=== PATIENT | male | born 1970 | race Asian ===

== ENCOUNTER 2024-03-02 18:25 | Observation (INO) | payer OTHER, SELFPAY ==
[2024-03-02 13:00] VITALS: BP 129/85
--- NOTE | 2024-03-02 13:00 | ED.GENMED ---
ED Provider Triage
<Yovany Olsen PA-C - Last Filed: 03/02/24 13:04>
-
Patient seen by provider in Triage?: Seen in Triage
Attestation: A medical screening examination has been initiated by a qualified medical provider. Based on the assessment performed at this time, it has been determined that an emergent medical condition may exist and the patient has been informed
that further medical evaluation and possible additional diagnostic testing may be needed.
HPI: 54-year-old male presenting to the emergency department for evaluation of chest pain and shortness of breath that has been occurring intermittently over the last 3 days. Started 3 days ago while he was at work doing some lifting. Symptoms
lasted approximately 5 to 6 hours and resolve spontaneously. He did note during that time he felt nauseous and lightheaded. [facility] had similar episode about 4 to 5 years ago where he was admitted to [facility] where he had a
stress test and echocardiogram completed but no abnormalities were found. He is supposed to be taking medicine for blood pressure and cholesterol but states stopped taking this a few years ago. He notes that he does not go to the primary care
regularly. Currently asymptomatic. Labs and EKG ordered in triage.
GENERAL: Alert , in no apparent distress
EYE: No visual abnormalities.
NECK: Trachea midline
ENT: No visible abnormalities.
LUNGS: No acute respiratory distress
NEUROLOGICAL: Alert and oriented
SKIN: Skin intact. No visible changes.
MUSCULOSKELETAL: Moving extremities normally
PSYCH: Normal and appropriate interaction.
This is a medical evaluation conducted in person to initiate diagnostic evaluation and provide initial therapeutics. Please see further documentation by the treating clinician.
History of Present Illness
<Yovany Olsen PA-C - Last Filed: 03/02/24 13:04>
General
Chief Complaint: Breathing Problem
Time Seen by Provider: 03/02/24 16:17
<Tony Cueva MD - Last Filed: 03/02/24 19:16>
General
Source: patient
Exam Limitations: none
History of Present Illness
History of Present Illness:
54-year-old male describing exertional shortness of breath and chest tightness with some nausea. Currently asymptomatic. Last episode this morning. Get symptoms going up stairs.
Past History
<Yovany Olsen PA-C - Last Filed: 03/02/24 13:04>
Past History
ED Past Medical History: Hypercholesterolemia; Negative Asthma, HTN or NIDDM
ED Past Surgical History: None
Social History
Tobacco: Non-smoker
Alcohol: None
Personal:
Living: with family
<Tony Cueva MD - Last Filed: 03/02/24 19:16>
Past History
ED Past Medical History: HTN
Phy Exam
<Tony Cueva MD - Last Filed: 03/02/24 19:16>
Physical Exam
Physical Exam:
GENERAL: Alert and oriented in no apparent distress
EYE: Orbits normal.
NECK: Supple, no significant adenopathy.
ENT: Pharynx without erythema
CARDIAC: Regular rate and rhythm without any obvious murmurs.
LUNGS: Clear breath sounds,normal
ABDOMEN: Soft, without focal tenderness or distention
NEUROLOGICAL: Alert and oriented , grossly non-focal
SKIN: Warm and dry, no rash or lesion, no discoloration, skin intact.
MUSCULOSKELETAL: No edema,no deformity.Good color
PSYCH: Normal and appropriate interaction.
Scores
<Tony Cueva MD - Last Filed: 03/02/24 19:16>
Heart Failure Risk
Heart Failure Risk Score: Not Applicable
Course
<Yovany Olsen PA-C - Last Filed: 03/02/24 13:04>
Orders/Labs/Results
Orders:
Orders
03/02/24 12:36
Electrocardiogram (*1) Urgent
Reason for Study: Chest Pain
EKG- Treatment ONCE
03/02/24 12:52
EKG- Treatment ONCE
03/02/24 13:52
Complete Blood Count/With Diff Urgent
Comprehensive Metabolic Panel Urgent
Troponin I Urgent
03/02/24 16:26
IV Insert/Care/Rem.- Treatment PRN
03/02/24 16:27
Cardiac Monitoring- Treatment ONCE
CR Chest - 2 Views Urgent
Comment:
Reason For Exam: cp
03/02/24 16:43
D-Dimer Urgent
03/02/24 17:45
Aspirin Chewable [Low Strength Aspirin] 324 mg PO NOW STA
03/02/24 18:05
Admit/Transfer Patient As Directed
Co-Sign Provider:
Level of Care: Observation services
Assign to:: Telemetry
Physician / Group: Htay
Diagnosis: chest pain
Reason for Telemetry: Chest Pain syndromes
Date to Stop Telemetry: 03/04/24
Time to Stop Telemetry: 11:00
Acetaminophen [Tylenol] 1,000 mg PO NOW STA
03/02/24 18:06
PRN Pain Medication Management As Directed
May give lesser potent ordered pain med per pt: Yes
preference::
Protocol:: Medication orders for pain may be administered in a
manner that supports deferring to patient preference
when the pt is:
- Requesting an ordered lesser potent pain medication.
Least to most potent pain medications are defined
as: acetaminophen < NSAID < tramadol < opioids
(morphine, oxycodone, hydromorphone).
- Requesting a lesser dose of the same medication IF
ORDERED.
- Requesting a less intrusive route of administration
if both routes are prescribed by the provider (PO <
IV).
03/02/24 18:07
Code Status As Directed
Resuscitation Status: Full Code
03/02/24 20:00
Electrocardiogram (*1) Q6H
Reason for Study: Chest Pain
Comment: at admission and Q3H for total of 3, to be done with each troponin
Troponin I Q6H
03/03/24 02:00
Electrocardiogram (*1) Q6H
Reason for Study: Chest Pain
Comment: at admission and Q3H for total of 3, to be done with each troponin
Troponin I Q6H
03/04/24 11:00
DC Protocol for Telemetry ONCE
Abnormal Lab Results
03/02/24
13:52
Monocytes % 9.8 H %
(1.7-9.3)
Glucose 105 H mg/dl
(70-99)
ALT 55 H U/L
(0-50)
03/02/24 13:52
03/02/24 13:52
Vital Signs
Initial and Last Documented VS:
Initial Vital Signs
Temp Pulse Resp BP Pulse Ox
98.7 F 80 18 129/85 99
03/02/24 13:00 03/02/24 13:00 03/02/24 13:00 03/02/24 13:00 03/02/24 13:00
Last Documented Vital Signs
Temp Pulse Resp BP Pulse Ox
98.4 F 70 18 157/93 100
03/02/24 15:01 03/02/24 16:15 03/02/24 16:15 03/02/24 16:15 03/02/24 16:15
<Tony Cueva MD - Last Filed: 03/02/24 19:16>
Orders/Labs/Results
Orders:
Orders
03/02/24 12:36
Electrocardiogram (*1) Urgent
Reason for Study: Chest Pain
EKG- Treatment ONCE
03/02/24 12:52
EKG- Treatment ONCE
03/02/24 13:52
Complete Blood Count/With Diff Urgent
Comprehensive Metabolic Panel Urgent
Troponin I Urgent
03/02/24 16:26
IV Insert/Care/Rem.- Treatment PRN
03/02/24 16:27
Cardiac Monitoring- Treatment ONCE
CR Chest - 2 Views Urgent
Comment:
Reason For Exam: cp
03/02/24 16:43
D-Dimer Urgent
03/02/24 17:45
Aspirin Chewable [Low Strength Aspirin] 324 mg PO NOW STA
03/02/24 18:05
Admit/Transfer Patient As Directed
Co-Sign Provider:
Level of Care: Observation services
Assign to:: Telemetry
Physician / Group: Htay
Diagnosis: chest pain
Reason for Telemetry: Chest Pain syndromes
Date to Stop Telemetry: 03/04/24
Time to Stop Telemetry: 11:00
Acetaminophen [Tylenol] 1,000 mg PO NOW STA
03/02/24 18:06
PRN Pain Medication Management As Directed
May give lesser potent ordered pain med per pt: Yes
preference::
Protocol:: Medication orders for pain may be administered in a
manner that supports deferring to patient preference
when the pt is:
- Requesting an ordered lesser potent pain medication.
Least to most potent pain medications are defined
as: acetaminophen < NSAID < tramadol < opioids
(morphine, oxycodone, hydromorphone).
- Requesting a lesser dose of the same medication IF
ORDERED.
- Requesting a less intrusive route of administration
if both routes are prescribed by the provider (PO <
IV).
03/02/24 18:07
Code Status As Directed
Resuscitation Status: Full Code
03/02/24 20:00
Electrocardiogram (*1) Q6H
Reason for Study: Chest Pain
Comment: at admission and Q3H for total of 3, to be done with each troponin
Troponin I Q6H
03/03/24 02:00
Electrocardiogram (*1) Q6H
Reason for Study: Chest Pain
Comment: at admission and Q3H for total of 3, to be done with each troponin
Troponin I Q6H
03/04/24 11:00
DC Protocol for Telemetry ONCE
Abnormal Lab Results
03/02/24
13:52
Monocytes % 9.8 H %
(1.7-9.3)
Glucose 105 H mg/dl
(70-99)
ALT 55 H U/L
(0-50)
03/02/24 13:52
03/02/24 13:52
Vital Signs
Initial and Last Documented VS:
Initial Vital Signs
Temp Pulse Resp BP Pulse Ox
98.7 F 80 18 129/85 99
03/02/24 13:00 03/02/24 13:00 03/02/24 13:00 03/02/24 13:00 03/02/24 13:00
Last Documented Vital Signs
Temp Pulse Resp BP Pulse Ox
98.4 F 70 18 157/93 100
03/02/24 15:01 03/02/24 16:15 03/02/24 16:15 03/02/24 16:15 03/02/24 16:15
<Tony Cueva MD - Last Filed: 03/02/24 19:16>
MDM/Problems Addressed
Differential Diagnosis Includes:
Patient's symptoms are concerning for unstable angina although he is stable at this time. Will admit to medicine.
<Tony Cueva MD - Last Filed: 03/02/24 19:16>
*Pulse Oximetry
Patient hypoxic: no
*EKG
Interpreted by ED Provider?: Yes
Interpretation: normal
Heart Rate: 69
Rate: normal
Rhythm: sinus
[place]: normal axis
Interval: normal interval
QRS Pattern: right bundle branch block (inc)
Ischemia: no ischemia
*Critical Care Note
Total Time (30-74mins, 75-104mins- exclusive of procedures): Not Applicable
ED Attending Note
<Yovany Olsen PA-C - Last Filed: 03/02/24 13:04>
-
Portions of this chart may have been created with voice recognition software.� Occasional wrong word or��sound alike� substitutions may have occurred due to the inherent limitations of voice recognition software.
Discharge Plan
Departure
Patient Disposition: Admit
Date of Disposition: 03/02/24
Time of Disposition: 17:49
Presentation/result/management discussed w/ accepting MD/DO: Hospitalist
Discharge Problem:
Possible unstable angina
Interventions
Interventions:
*Risk Screen - Suicide Last Done: 03/02/24 13:00
*General Assessment Last Done: 03/02/24 13:00
*Neglect/Abuse Screening Last Done: 03/02/24 13:00
ED- Cardiac Assessment Last Done: 03/02/24 16:17
ED- Pulmonary Assessment Last Done: 03/02/24 16:17
[2024-03-02 13:59] LABS: % Basophils 1.2 % (0-2); % Eosinophils 4.3 % (0-6); % Immature Granulocytes 0.2 % (0-0.5); % Lymphocytes 39.5 % (20.5-51.1); % Monocytes 9.8 % (1.7-9.3); Absolute Basophils 0.1 10^3/uL (0-0.2); Absolute Eosinophils 0.2 10^3/uL (0-0.7); Absolute Monocytes 0.5 10^3/uL (0.1-0.6); Absolute Neutrophils 2.3 10^3/uL (1.4-6.5); Hematocrit 47.5 % (39.0-52.0); Hemoglobin 16.9 g/dL (13.0-18.0); Mean Corp Hgb Conc. 35.6 g/dL (33.0-37.0); Mean Corpuscular Hgb 30.7 pg (27.0-31.0); Mean Corpuscular Volume 86.4 fL (80.0-94.0); Mean Platelet Volume 9.4 fL (7.4-10.4); Nucleated Red Blood Cells % 0 % (-); Platelet Count 239 10^3/uL (130-400); Red Cell Dist. Width 12.1 % (11.5-14.5); White Blood Cell Count 5.1 10^3/uL (4.8-10.8)
[2024-03-02 14:38] LABS: Troponin I < 0.012 ng/ml
[2024-03-02 14:41] LABS: ALT (SGPT) 55 U/L (0-50); AST (SGOT) 36 U/L (17-59); Albumin 4.9 g/dl (3.5-5.0); Alkaline Phosphatase 68 U/L (38-126); Blood Urea Nitrogen 19 mg/dl (9-20); Calcium 9.3 mg/dl (8.4-10.2); Carbon Dioxide 28 mmol/L (22-30); Chloride 101 mmol/L (98-107); Glucose 105 mg/dl (70-99); Sodium 142 mmol/L (135-145); Total Bilirubin 0.5 mg/dl (0.2-1.3); Total Protein 7.4 g/dl (6.3-8.2); eGFR > 60.00
[2024-03-02 15:01] VITALS: BP 137/90
[2024-03-02 16:15] VITALS: BP 157/93
[2024-03-02 17:05] LABS: D-Dimer < 0.27 ug/mlFEU (0.00-0.50)
[2024-03-02 18:00] VITALS: BP 144/88
[2024-03-02] MEDS: LOW STRENGTH ASPIRIN 324 MG PO (18:11)
[2024-03-02] MEDS: TYLENOL 1000 MG PO (18:11)
--- NOTE | 2024-03-02 18:13 | HPS.HSE ---
Addendum entered and electronically signed by Diony Muro MD 03/02/24 18:44:
I saw and examined the patient.
The BAR STEWARD or PA's note was reviewed and I agree with the note.
Comment:
4S M HX f hypertension and hyperlipidemia
Hemodynamically stable Abnormal Lab Results
03/02/24
13:52
Monocytes % 9.8 H
Glucose 105 H
ALT 55 H
Vital Signs
Temp Pulse Resp BP Pulse Ox
98.4 F 70 18 157/93 100
03/02/24 15:01 03/02/24 16:15 03/02/24 16:15 03/02/24 16:15 03/02/24 16:15
EKG:
NORMAL SINUS RHYTHM
INCOMPLETE RIGHT BUNDLE BRANCH BLOCK
BORDERLINE ECG
WHEN COMPARED WITH ECG OF 24-AUG-2021 21:02
ASSESSMENT & PLAN
Chest Pain, possible Angina
- NEG TPNI
- Trend troponin and serial EKGs
- Continue aspirin
- consult Cardiology
Essential Hypertension
- agree with metoprolol
Hyperlipidemia
- agree with atorvastatin
DVT Prx : SCDs
Full code
TLM
Original Note:
Family Physician
-
Family Physician: Marsha Randall
Chief Complaint
-
Chest Pain
History of Present Illness
Patient is a 54 y/o male past medical history of hypertension and hyperlipidemia though not on medication who presents with chest pain. Patient reports 3 day ago while lifting boxes he developed chest pressure that last for several hours
afterwards. Since then he has had two more episodes, most recently this morning while eating breakfast. He reports chest pressure walking up the stairs which he reports is accompanied by shortness of breath, and lightheadedness. He reports similar
episode a few years ago with a negative work-up at that time.
Medical History
Past Medical History
Past Medical History: Reports Other
Additional Past Medical History:
Essential Hypertension
Hyperlipidemia
Past Surgical History: Reports Other
Additional Past Surgical History:
Hernia Repair
Social History
Tobacco: Former Smoker (Quit over 20 year ago)
Alcohol: Occasional
Personal:
Living: With Family
Family History
Family History: CAD (Mother and Father)
Allergies / Home Medications
Allergies reflects when Allergies were last updated in [facility].
Home Medications with original date entered in [facility]
Allergy/Medication List:
Allergies
Allergy/AdvReac Type Severity Reaction Status Date / Time
No Known Allergies Allergy Unverified 08/24/21 15:17
Home Medications
ascorbic acid (vitamin C) 1,000 mg tablet (Vitamin C) 1,000 mg PO DAILY 08/24/21
multivitamin 1 ea PO DAILY 08/24/21
-rgf-vhx-other [id number] oil 1,050 mg capsule ([place] [employer]) 1,050 mg PO DAILY 08/24/21
Review of Systems
-
A 12 point ROS was completed and negative except as noted: Yes
Constitutional: Denies Fever or Chills
Respiratory: Reports Trouble Breathing; Denies Cough
Cardiac: Reports Chest Pain
Abdomen/GI: Reports Nausea; Denies Abdominal Pain, Vomiting or Diarrhea
Physical Exam
Vital Signs
Vital Signs
Temp Pulse Resp BP Pulse Ox
98.4 F 70 18 157/93 100
03/02/24 15:01 03/02/24 16:15 03/02/24 16:15 03/02/24 16:15 03/02/24 16:15
Physical Exam
General: No Apparent Distress, Comfortable and Conversant
HEENT: Anicteric and Moist mucous membranes
Respiratory: Clear and Non Labored Respirations
Cardiac: S1/S2 and Regular Rhythm
GI: Soft and Non Tender
Rectal: Deferred by Provider
Musculoskeletal: No Clubbing, No Cyanosis and No Edema
Skin: Warm and Dry
Neuro: Awake, Alert, Oriented and Nonfocal/grossly intact
Psych: Calm
Laboratory Results
-
03/02/24 13:52
03/02/24 13:52
Laboratory Results
Total Bilirubin 0.5 mg/dl (0.2-1.3) 03/02/24 13:52
AST 36 U/L (17-59) 03/02/24 13:52
ALT 55 U/L (0-50) H 03/02/24 13:52
Alkaline Phosphatase 68 U/L (38-126) 03/02/24 13:52
Troponin I < 0.012 ng/ml 03/02/24 13:52
Data Reviewed
-
Medical Tests (Nuc Med, Echo, EKG etc): Report Reviewed by me (EKG)
Lab Data: Labs Reviewed by me
Impression/Plan
-
Chest Pain, possible Angina
-Consult Cardiology
-Trend troponin and serial EKGs
-Continue aspirin
Essential Hypertension
-Start metoprolol
Hyperlipidemia
-Start atorvastatin
DVT Proph: SCDs
Code Status: Full Code
--- NOTE | 2024-03-02 18:13 | CON.CAR ---
Consultation
Consultation Request
Date/Time Consultation Requested: 03/02/2024 at 1730
Date/Time Consultation Performed: 03/02/2024 at 1815
Requesting Provider: Dr. Cueva
Performing Provider: Dr. Villalba
Reason for Consultation: Chest pain
Medical History
-
History of Present Illness:
54-year-old male with a history of hypercholesterolemia and a family history of coronary artery disease who presents with complaints of exertional shortness of breath and episodes of chest discomfort. Patient states he had symptoms over the last 3
days. He was in his usual state of health until Tuesday. 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 He said boxes were about 30 pounds and he was working moving the boxing Kasey for close to an hour he noticed that he got short of
breath and he had to go sit down to catch his breath and while he was trying to catch his breath he had chest pressure that persisted. He says that although the chest pressure and shortness of breath improved significantly had residual chest
pressure for about 6 hours. He also just felt tired. He had no palpitations or heart racing no cough fever. No other GI symptoms. The next day he decided to stay home from work he was able to do light activities like walking the dog and walking
up the stairs slowly but on 1 occasion he walked up the stairs more quickly and felt like he got out of breath and then felt like he would have the chest pressure for couple hours. He also noted later that day that his shortness of breath and chest
discomfort would occur after eating he says this did not happen if he drank liquids but if he ate any kind of solid food he would develop the symptoms. The symptoms even occurred while he was seated this morning after eating breakfast he had
recurrence of the symptoms which prompted him to go to the ER. Symptoms resolved without any additional therapy currently chest pain-free. No prior cardiac history he has been told he has hypercholesterolemia but has not taken medical therapy.
Family history is notable for his father having heart attack in his 70s and his mother having bypass in her 60s
Review of systems otherwise unremarkable
Currently chest pain-free. Troponin negative. D-dimer negative. Glucose 105 AST 36 ALT 55 total bilirubin 0.5
No prior history of coronary artery disease
Denies having history of hypertension, diabetes smoking
ECG tracing reviewed sinus rhythm with incomplete right bundle branch block
Social History
Tobacco: Non-Smoker
Family History
Family History: CAD (As noted above)
Allergies / Home Medications
Allergy/AdvReac Type Severity Reaction Status Date / Time
No Known Allergies Allergy Unverified 08/24/21 15:17
�Medication �Instructions �Recorded �Confirmed �Type
ascorbic acid (vitamin C) 1,000 mg 1,000 mg PO DAILY 08/24/21 08/24/21 History
tablet (Vitamin C)
multivitamin 1 ea PO DAILY 08/24/21 08/24/21 History
znufm7-[id number]-other [id number] 1,050 mg PO DAILY 08/24/21 08/24/21 History
oil 1,050 mg capsule ([employer] [employer])
Review of Systems
-
All other systems: Negative unless noted
Physical Exam
Vital Signs
Temp Pulse Resp BP Pulse Ox
98.4 F 70 18 157/93 100
03/02/24 15:01 03/02/24 16:15 03/02/24 16:15 03/02/24 16:15 03/02/24 16:15
Lab Results
03/02/24 13:52
03/02/24 13:52
Troponin I < 0.012 ng/ml 03/02/24 13:52
Physical Exam
General: Well Developed and Well Nourished
HEENT: Normocephalic
Respiratory: Clear (No wheezes rales or rhonchi)
Cardiac: S1/S2, Regular Rhythm and Other (No murmur rub or gallop)
GI: Soft, Non Tender, Non Distended, Normal Bowel Sounds and Other (No mass no hepatosplenomegaly)
Musculoskeletal: No Clubbing, No Cyanosis and No Edema
Skin: Warm, Dry and Rash (No rash)
Neuro: Awake, Alert and Oriented
Hematologic/Lymphatic: No Lymphadenopathy
Psych: Calm and Other (Cooperative)
Impression / Plan
-
Chest discomfort. Etiology unclear. With report of exertional shortness of breath and reports of chest pressure this raises concern for angina. However patient also has some postprandial symptoms and despite having prolonged symptoms over the
last couple days his troponins have been negative. Would consider both cardiac and noncardiac causes.D-dimer is negative and troponins are negative so far. ECG without acute changes
-Monitor on telemetry
-Aspirin
-Serial troponins
-PPI
-Based on clinical course will will make determination regarding invasive versus noninvasive evaluation for CAD.
.
Hypercholesterolemia. By history. Not on medical therapy
-Lipid profile
.
Elevated ALT. Minimal elevation check follow-up labs
Data Reviewed
-
EKG: Report Reviewed by me
Radiology: Report Reviewed by me
Medical Tests (Nuc Med, Echo etc): Report Reviewed by me
Labs: Labs Reviewed by me
[2024-03-02] MEDS: PROTONIX 40 MG PO (19:19)
[2024-03-02 20:00] VITALS: BP 130/83; BMI 23.1
--- NOTE | 2024-03-02 20:00 | PTCARENOTE ---
Received pt from ED via stretcher. Patient able to use standing scale with no assistance. AAO*4, VSS, patient c/o 2/10 'pressure' pain in center of chest. No SOB/Diaphoresis. Troponin and EKG completed as per order. All orders reviewed and
verified. Plan of care discussed with patient. Patient oriented to room. Bed locked in low position with call mary in reach.
[2024-03-02] MEDS: LOPRESSOR 12.5 MG PO (20:22)
[2024-03-02 20:46] LABS: Troponin I < 0.012 ng/ml
[2024-03-02 23:11] VITALS: BP 110/78
[2024-03-03 02:50] LABS: Troponin I 0.013 ng/ml
[2024-03-03 03:03] VITALS: BP 122/77
--- NOTE | 2024-03-03 07:46 | W.PN.HOSP.TC ---
Addendum entered and electronically signed by Kennedy Healy MD 03/03/24 14:15:
Seen and examined
Chest pain resolved at the
Started after lifting heavy objects
Progressively got worse with walking and strenuous activity associated shortness of breath improved with rest
Also occurred postprandial
Unclear if this is cardiac versus noncardiac
Troponins negative x 3
EKG nonischemic
Suspect stable angina with dyspepsia
Start H2 sandrine
Per cardiology plan for stress test on Tuesday. I personally spoke with him about this as I believed he could go home however they want the stress test to be completed on Tuesday as the emergency room physicians for concerned for the story per
cardiology
Original Note:
Today's Communication/Plan
-
Patient is scheduled for an echo and exercise nuclear stress test on 03/05/2024. We will continue to monitor.
Assessment / Plan
Assessment / Plan
Assessment/Plan:
-Chest discomfort: Etiology unclear.
Patient reported exertional shortness of breath and chest pressure which raises concern for angina -however the patient also has some postprandial symptoms
Despite having the symptoms for the past couple of days his troponins have been negative.
Considering both cardiac and noncardiac causes
D-dimer was negative and troponins are negative
ECG without acute changes and shows bradycardia
Monitoring on telemetry
Aspirin given
Following troponins
PPI for stress ulcers
Appreciate cardiology consult -they recommend an echo and exercise nuclear stress test Tuesday and placed orders accordingly
-Hypercholesterolemia:
Lipid panel taken on 03/03/2024 showed hypercholesterolemia at a level of 231 and an LDL of 167
-Elevated liver enzymes:
ALT was slightly elevated at 55 -we will continue to follow
DVT prophylaxis: Sequential compression devices
FULL CODE STATUS
Anticipated Discharge: > 48 hours
Subjective/Interval History
-
Date of Service: March 03, 2024
Met with the patient at the bedside. He states that he is feeling much better today and does not have any chest pain. He notes that his chest pain becomes most prominent after eating food. He also mentioned that he does not experience pain when
he drinks water. He states that he has some stressors in his life but nothing excessive or out of the ordinary when compared to normal.
Objective Data
-
Labs:
Laboratory Results
03/03/24
06:07
WBC Pending
Hgb Pending
Hct Pending
Plt Count Pending
Sodium Pending
Potassium Pending
Chloride Pending
Carbon Dioxide Pending
BUN Pending
Creatinine Pending
Glucose Pending
Calcium Pending
Vital Signs:
Vital Signs
Temp Pulse Resp BP Pulse Ox
97.8 F 52 18 122/77 98
03/03/24 03:03 03/03/24 03:03 03/03/24 03:03 03/03/24 03:03 03/03/24 03:03
I&O
03/02/24 03/03/24 03/04/24
06:59 06:59 06:59
Intake Total 0 / 0
Balance 0 / 0
Review of Systems
-
History Source: Patient
All other systems: Reviewed and negative
Constitutional: Reports No Symptoms
EENT: Reports No Symptoms Reported
Respiratory: Reports No Symptoms
Cardiac: Reports No Symptoms
Abdomen/GI: Reports No Symptoms
Breast: Reports No Symptoms
Genitourinary: Reports No Symptoms
Musculoskeletal: Reports No Symptoms
Skin: Reports No Symptoms
Neuro: Reports No Symptoms
Endocrine: Reports No Symptoms
Hematologic / Lymphatic: Reports No Symptoms
Allergy / Immunology: Reports No Symptoms
Physical Exam
-
General: Well Developed, Well Nourished, No Apparent Distress and Comfortable
HEENT: Normocephalic, Atraumatic and Moist Mucous Membranes
Respiratory: Clear to Auscultation
Cardiac: Regular Rhythm and S1/S2
Breast: Deferred by me
GI: Soft, Nontender, Nondistended and Normal Bowel Sounds
Rectal: Deferred by Provider
Genito-urinary: Deferred by me
Musculoskeletal: No Clubbing, No Cyanosis and No Edema
Skin: Warm, Dry and Rash
Neuro: Awake, Alert, Oriented and AO x 3
Psych: Calm
[2024-03-03 07:57] VITALS: BP 128/89
[2024-03-03 08:32] LABS: Hematocrit 43.9 % (39.0-52.0); Hemoglobin 15.4 g/dL (13.0-18.0); Mean Corp Hgb Conc. 35.1 g/dL (33.0-37.0); Mean Corpuscular Volume 85.4 fL (80.0-94.0); Mean Platelet Volume 10.1 fL (7.4-10.4); Platelet Count 247 10^3/uL (130-400); Red Blood Cell Count 5.14 10^6/uL (4.70-6.10); Red Cell Dist. Width 12.4 % (11.5-14.5); White Blood Cell Count 5.8 10^3/uL (4.8-10.8)
[2024-03-03] MEDS: LOW STRENGTH ASPIRIN 81 MG PO (08:41)
[2024-03-03] MEDS: LOPRESSOR 12.5 MG PO ×2 (08:41→19:40)
[2024-03-03] MEDS: PROTONIX 40 MG PO (08:41)
[2024-03-03 09:01] LABS: Blood Urea Nitrogen 22 mg/dl (9-20); Calcium 9.4 mg/dl (8.4-10.2); Carbon Dioxide 27 mmol/L (22-30); Chloride 102 mmol/L (98-107); Estimated Creatinine Clearance 83 ml/min; Glucose 100 mg/dl (70-99); HDL Cholesterol 41 mg/dl; LDL Cholesterol, Calculated 166 mg/dl; Potassium 4.4 mmol/L (3.5-5.1); Sodium 142 mmol/L (135-145); Total Cholesterol 231 mg/dl (50-199); Triglyceride 123 mg/dl (10-149); Very Low Density Lipoprotein 24 mg/dl (0-30); eGFR > 60.00
--- NOTE | 2024-03-03 10:39 | W.PN.CD ---
Addendum entered and electronically signed by Kentrell Villalba MD 03/03/24 12:25:
I saw and examined the patient.
The WRITER's note was reviewed and I agree with the note.
Patient's had some recurrent symptoms last night and this morning both episodes appear to be postprandial. Sometimes he will say the symptoms are gone and other times will say he has some residual pressure. Exact etiology unclear. The
postprandial component makes his symptoms sound more GI yesterday he was reporting more shortness of breath issues.
-Follow-up LFTs
-Amylase/lipase
-Continue PPI
-Considering the extent of symptoms he had leading up to presentation would favor continued observation. Plan for additional testing as previously outlined
Original Note:
Today's Communication / Plan
-
continue medical therapy.
echo and exercise nuclear stress test on 03/05/24.
Impression / Plan
-
Chest pressure - exertional symptoms, concerning for angina.
- troponin trend negative, EKG w/o ischemia.
- plan for echo and exercise nuclear stress test on Tuesday03/05/24.
- PRN NTG as BP tolerates.
- also on PPI for chest pressure after eating.
HTN - elevated BP on arrival.
- now on Lopressor and tolerating with mild bradycardia, asymptomatic.
- BP well controlled.
Hypercholesterolemia - LDL 166, started on Lipitor 40mg daily.
Physical Exam
Vital Signs/Labs
Vital Signs
Temp Pulse Resp BP Pulse Ox
97.4 F 51 18 128/89 99
03/03/24 07:57 03/03/24 08:41 03/03/24 07:57 03/03/24 08:41 03/03/24 07:57
03/02/24 03/03/24 03/04/24
06:59 06:59 06:59
Actual Weight 156 lb 7 oz
03/03/24 06:07
03/03/24 06:07
Triglycerides 123 mg/dl (10-149) 03/03/24 06:07
LDL Cholesterol, Calc 166 mg/dl 03/03/24 06:07
VLDL Cholesterol, Calc 24 mg/dl (0-30) 03/03/24 06:07
HDL Cholesterol 41 mg/dl 03/03/24 06:07
LAB Results
03/02/24 03/02/24 03/03/24
13:52 20:10 02:09
Troponin I < 0.012 < 0.012 0.013
Physical Exam
Constitutional: No acute distress and Comfortable
EENT: Anicteric and Moist mucous membranes
Cardiovascular: Rhythm & rate is regular
Respiratory: Respiratory effort normal
GI: Soft, Non tender and Normal bowel sounds
Neuro/Psych: AO x 3
Other: Skin (warm, dry)
Data Reviewed
-
Date of Service: March 03, 2024
Medical Decision Making: Reviewed Test Results
EKG: Tracing Personally Visualized and interpreted
Labs: Labs Reviewed by me
--- NOTE | 2024-03-03 10:40 | CM ---
CM met with pt at bedside. Pt admitted with chest pain.
Confirmed PCP is Marsha Randall and pharmacy is [facility] in [place].
Obs notice reviewed with pt and pt verbalized understanding.
Pt resides with family and adult children. 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
Ind amb using no AD and adl's.
No skilled discharge needs anticipated.
CM/SW to follow and watch for needs.
[2024-03-03 11:25] VITALS: BP 124/86
[2024-03-03 11:31] LABS: Glycohemoglobin (HgbA1c) 5.6 % (4.0-5.6)
[2024-03-03 12:11] LABS: ALT (SGPT) 56 U/L (0-50); AST (SGOT) 37 U/L (17-59); Albumin 4.3 g/dl (3.5-5.0); Alkaline Phosphatase 68 U/L (38-126); Total Bilirubin 0.4 mg/dl (0.2-1.3); Total Protein 6.7 g/dl (6.3-8.2)
[2024-03-03 12:40] LABS: Amylase 75 U/L (30-110)
[2024-03-03 15:21] VITALS: BP 135/93
[2024-03-03] MEDS: LIPITOR 40 MG PO (17:14)
[2024-03-03 19:20] VITALS: BP 130/88
[2024-03-03 23:38] VITALS: BP 126/84
[2024-03-04 03:19] VITALS: BP 122/84
[2024-03-04 06:00] VITALS: BMI 22.7
[2024-03-04 07:17] VITALS: BP 127/84
--- NOTE | 2024-03-04 07:20 | W.PN.HOSP.TC ---
Addendum entered and electronically signed by Ignacio Healy MD 03/04/24 16:37:
I saw and evaluated the patient. I reviewed the resident�s note and agree with findings and plan as documented in the resident�s note.
1. Chest pain -initially exertional in nature. In hospital have some postprandial symptoms as well. EKG/troponin did not show any active ACS. D-dimer has been negative. 4 years back patient had similar exertional chest pain episode for which
patient underwent exercise stress test at [address] and was negative.
Patient is planned to undergo repeat exercise stress test tomorrow. Maintain on aspirin/statin. Cardio help appreciated
2. Elevated ALT - denies alcohol use. on Omega3/fish oil? and have unspecified Liver enzyme elevation as drug side effect. With need of statin therapy with suspected cardiac etiology of chest pain, patient would benefit with follow-up LFT/repeat
liver imaging
3. HLD - TC 266 and LDL 184. started on statin.
Original Note:
Today's Communication/Plan
-
Troponins trended negative we will stop trending them. Continued bradycardia. Echo and nuclear stress test scheduled for 03/05/2024. Continue PPI. Beta-sandrine discontinued due to bradycardia.
Assessment / Plan
Assessment / Plan
Assessment/Plan:
-Chest discomfort: Etiology unclear.
Patient reported exertional shortness of breath and chest pressure which raises concern for angina -however the patient also has some postprandial symptoms
Despite having the symptoms for the past couple of days his troponins have been negative.
Considering both cardiac and noncardiac causes
D-dimer was negative and troponins are negative
ECG without acute changes and shows bradycardia
Monitoring on telemetry
Aspirin given
Following troponins
PPI for stress ulcers
Appreciate cardiology consult -they recommend an echo and exercise nuclear stress test Tuesday and placed orders accordingly
-Hypercholesterolemia:
Lipid panel taken on 03/03/2024 showed hypercholesterolemia at a level of 231 and an LDL of 167
Started on atorvastatin 40 mg daily
-Elevated liver enzymes:
ALT was slightly elevated at 70 on 03/04/24 -we will continue to follow (was 56 on 03/03/24)
-Bradycardia:
Holding metoprolol due to ongoing bradycardia
DVT prophylaxis: Sequential compression devices
FULL CODE STATUS
Anticipated Discharge: 24 - 48 hours
Subjective/Interval History
-
Date of Service: March 04, 2024
Met with patient at the bedside. Overall he feels much better and states that he 'feels medical detail representative.' He did mention that he had a moment of dizziness after breakfast for 5 minutes and was nauseous for 4 to 10 seconds during breakfast. Otherwise, he
offers no complaints at the present time and is hoping that the further tests that will be conducted tomorrow may shed light on his chest pain/tightness.
Objective Data
-
Labs:
Laboratory Results
03/04/24
08:55
WBC 6.8
Hgb 17.7
Hct 50.4
Plt Count 259
Sodium 141
Potassium 3.6
Chloride 99
Carbon Dioxide 28
BUN 24 H
Creatinine 1.1
Glucose 109 H
Calcium 9.5
Total Bilirubin 0.6
AST 46
ALT 70 H
Alkaline Phosphatase 82
Vital Signs:
Vital Signs
Temp Pulse Resp BP Pulse Ox
98.1 F 68 18 132/88 97
03/04/24 15:13 03/04/24 15:13 03/04/24 15:13 03/04/24 15:13 03/04/24 11:13
I&O
03/03/24 03/04/24 03/05/24
06:59 06:59 06:59
Intake Total 0 / 0 860 / 860
Balance 0 / 0 860 / 860
Review of Systems
-
History Source: Patient
All other systems: Reviewed and negative
Constitutional: Reports Other (A brief moment of dizziness for 5 minutes during breakfast and nauseousness for 10 seconds)
EENT: Reports No Symptoms Reported
Respiratory: Reports No Symptoms
Cardiac: Reports No Symptoms
Abdomen/GI: Reports Nausea (Nausea for 10 seconds during breakfast)
Breast: Reports No Symptoms
Genitourinary: Reports No Symptoms
Musculoskeletal: Reports No Symptoms
Skin: Reports No Symptoms
Neuro: Reports Lightheadedness (Lightheadedness after breakfast for 5 minutes)
Endocrine: Reports No Symptoms
Hematologic / Lymphatic: Reports No Symptoms
Physical Exam
-
General: Well Developed, Well Nourished and No Apparent Distress
HEENT: Normocephalic and Atraumatic
Respiratory: Clear to Auscultation
Cardiac: Regular Rhythm and S1/S2
Breast: Deferred by me
GI: Soft, Nontender, Nondistended and Normal Bowel Sounds
Rectal: Deferred by Provider
Genito-urinary: Deferred by me
Musculoskeletal: No Clubbing, No Cyanosis and No Edema
Skin: Warm and Dry
Neuro: Awake, Alert, Oriented and AO x 3
Psych: Calm
[2024-03-04] MEDS: LOW STRENGTH ASPIRIN 81 MG PO (08:26)
[2024-03-04] MEDS: LOPRESSOR 12.5 MG PO (08:26)
[2024-03-04] MEDS: PROTONIX 40 MG PO (08:26)
[2024-03-04 09:18] LABS: Hematocrit 50.4 % (39.0-52.0); Hemoglobin 17.7 g/dL (13.0-18.0); Mean Corp Hgb Conc. 35.1 g/dL (33.0-37.0); Mean Corpuscular Hgb 30.6 pg (27.0-31.0); Mean Corpuscular Volume 87.2 fL (80.0-94.0); Mean Platelet Volume 9.5 fL (7.4-10.4); Platelet Count 259 10^3/uL (130-400); Red Blood Cell Count 5.78 10^6/uL (4.70-6.10); Red Cell Dist. Width 12.3 % (11.5-14.5); White Blood Cell Count 6.8 10^3/uL (4.8-10.8)
[2024-03-04 09:46] LABS: ALT (SGPT) 70 U/L (0-50); AST (SGOT) 46 U/L (17-59); Albumin 5.1 g/dl (3.5-5.0); Alkaline Phosphatase 82 U/L (38-126); Amylase 83 U/L (30-110); Blood Urea Nitrogen 24 mg/dl (9-20); Calcium 9.5 mg/dl (8.4-10.2); Carbon Dioxide 28 mmol/L (22-30); Chloride 99 mmol/L (98-107); Estimated Creatinine Clearance 75 ml/min; Glucose 109 mg/dl (70-99); HDL Cholesterol 48 mg/dl; LDL Cholesterol, Calculated 184 mg/dl; Potassium 3.6 mmol/L (3.5-5.1); Sodium 141 mmol/L (135-145); Total Bilirubin 0.6 mg/dl (0.2-1.3); Total Cholesterol 266 mg/dl (50-199); Total Protein 7.8 g/dl (6.3-8.2); Triglyceride 171 mg/dl (10-149); Very Low Density Lipoprotein 34 mg/dl (0-30); eGFR > 60.00
[2024-03-04 11:13] VITALS: BP 126/78
--- NOTE | 2024-03-04 15:01 | W.PN.CD ---
Today's Communication / Plan
-
continue PPI and ASA
plan for stress test in AM
will hold BB
Impression / Plan
-
Chest pressure - initally reported exerional symptoms. with asociated SOB and then had some post prandial symptoms. etiologyunclear
- troponin trend negative, EKG w/o ischemia.
- plan for echo and exercise nuclear stress test on Tuesday03/05/24.
- PPI
- stop BB
HTN - elevated BP on arrival. no w stable
Hypercholesterolemia - LDL 166, started on Lipitor 40mg daily.
Physical Exam
Vital Signs/Labs
Vital Signs
Temp Pulse Resp BP Pulse Ox
97.6 F 59 14 126/78 97
03/04/24 11:13 03/04/24 11:13 03/04/24 11:13 03/04/24 11:13 03/04/24 11:13
03/03/24 03/04/24 03/05/24
06:59 06:59 06:59
Actual Weight 70.959 kg 69.57 kg
03/04/24 08:55
03/04/24 08:55
Triglycerides 171 mg/dl (10-149) H 03/04/24 08:55
LDL Cholesterol, Calc 184 mg/dl 03/04/24 08:55
VLDL Cholesterol, Calc 34 mg/dl (0-30) H 03/04/24 08:55
HDL Cholesterol 48 mg/dl 03/04/24 08:55
LAB Results
03/02/24 03/02/24 03/03/24
13:52 20:10 02:09
Troponin I < 0.012 < 0.012 0.013
Physical Exam
Constitutional: No acute distress
Cardiovascular: Rhythm & rate is regular
Respiratory: Respiratory effort normal
GI: Soft
Data Reviewed
-
Date of Service: March 04, 2024
Medical Decision Making: Reviewed Test Results
[2024-03-04 15:13] VITALS: BP 132/88
[2024-03-04 15:37] LABS: Lipase 120 U/L (23-300)
[2024-03-04] MEDS: LIPITOR 40 MG PO (17:19)
[2024-03-04 19:27] VITALS: BP 124/84
[2024-03-04 23:34] VITALS: BP 127/89
[2024-03-05 03:18] VITALS: BP 117/82
[2024-03-05 06:00] VITALS: BMI 22.6
[2024-03-05 07:35] VITALS: BP 141/91
--- NOTE | 2024-03-05 07:47 | W.PN.HOSP.TC ---
Addendum entered and electronically signed by Ignacio Healy MD 03/05/24 16:31:
I saw and evaluated the patient. I reviewed the resident�s note and agree with findings and plan as documented in the resident�s note.
Patient stress test has been negative with no changes of exercise-induced ischemia. Does have decreased exercise tolerance and achieved 95% of HR goals.
Patient had 3 minutes of chest discomfort/shortness of breath after finishing stress dose and normalized as well.
Sestamibi scan showed some inferior wall perfusion defect although felt to be soft tissue attenuation - see detailed report from today
TTE did not show any valvular issues/EF normal
Discussed with cardiology as well.
Patient to be discharged on asa/statin/protonix
Patient to have f/u with pulmonology office
Original Note:
Today's Communication/Plan
-
Patient underwent cardiac stress testing today. Appreciate cardiology consult. They are reviewing the results of this testing and based on their decision we we will make medication adjustments or move forward with discharge planning and future
follow up in the outpatient setting with cardiology.
Assessment / Plan
Assessment / Plan
Assessment/Plan:
-Chest discomfort: Etiology unclear.
Patient reported exertional shortness of breath and chest pressure which raises concern for angina -however the patient also has some postprandial symptoms
Despite having the symptoms for the past couple of days his troponins have been negative.
Considering both cardiac and noncardiac causes
D-dimer was negative and troponins are negative
ECG without acute changes and shows bradycardia
Monitoring on telemetry
Aspirin given
Following troponins
PPI for stress ulcers
Appreciate cardiology consult -they conducted a stress test today and are assessing the results of that test
-Hypercholesterolemia:
Lipid panel taken on 03/03/2024 showed hypercholesterolemia at a level of 231 and an LDL of 167
Started on atorvastatin 40 mg daily
-Elevated liver enzymes:
ALT was slightly elevated at 70 on 03/04/24 -we will continue to follow (was 56 on 03/03/24)
-Bradycardia:
Holding metoprolol due to ongoing bradycardia
DVT prophylaxis: Sequential compression devices
FULL CODE STATUS
Anticipated Discharge: 24 - 48 hours
Subjective/Interval History
-
Date of Service: March 05, 2024
Met with patient at the bedside. He states that he feels better than he did in the past few days but had a moment of chest discomfort after he finished his stress test today. He spoke with Dr. Villalba about following up with cardiology in the
outpatient setting.
Objective Data
-
Labs:
Labs
03/05/24 11:28
03/05/24 11:28
Vital Signs:
Vital Signs
Temp Pulse Resp BP Pulse Ox
97.6 F 64 20 117/82 96
03/05/24 03:18 03/05/24 03:18 03/05/24 03:18 03/05/24 03:18 03/05/24 03:18
I&O
03/04/24 03/05/24 03/06/24
06:59 06:59 06:59
Intake Total 860 / 860 660 / 660
Balance 860 / 860 660 / 660
Review of Systems
-
History Source: Patient
All other systems: Reviewed and negative
Constitutional: Reports Fatigue (Slight fatigue following stress test today)
EENT: Reports No Symptoms Reported
Respiratory: Reports No Symptoms
Cardiac: Reports Other (Slight fatigue after stress test today)
Abdomen/GI: Reports No Symptoms
Breast: Reports No Symptoms
Genitourinary: Reports No Symptoms
Musculoskeletal: Reports No Symptoms
Skin: Reports No Symptoms
Neuro: Reports No Symptoms
Endocrine: Reports No Symptoms
Hematologic / Lymphatic: Reports No Symptoms
Allergy / Immunology: Reports No Symptoms
Physical Exam
-
General: Well Developed, Well Nourished and No Apparent Distress
HEENT: Normocephalic, Atraumatic and Moist Mucous Membranes
Respiratory: Clear to Auscultation
Cardiac: Regular Rhythm and S1/S2
Breast: Deferred by me
GI: Soft and Nontender
Rectal: Deferred by Provider
Genito-urinary: Deferred by me
Musculoskeletal: No Clubbing, No Cyanosis and No Edema
Skin: Warm and Dry
Neuro: Awake, Alert, Oriented and AO x 3
Psych: Calm
--- NOTE | 2024-03-05 10:21 | W.PN.CD ---
Today's Communication / Plan
-
No recurrent symptoms.
Will await results of ETT MIBI. Additional recommendations based on results
PPI
Impression / Plan
-
Chest pressure - initally reported exerional symptoms. with asociated SOB and then had some post prandial symptoms. etiologyunclear
- troponin trend negative, EKG w/o ischemia.
- plan for echo and exercise nuclear stress test on Tuesday03/05/24.
- PPI
HTN - elevated BP on arrival. no w stable
Hypercholesterolemia - LDL 166, started on Lipitor 40mg daily.
Physical Exam
Vital Signs/Labs
Vital Signs
Temp Pulse Resp BP Pulse Ox
97.4 F 63 18 141/91 99
03/05/24 07:35 03/05/24 07:35 03/05/24 07:35 03/05/24 07:35 03/05/24 07:35
03/04/24 03/05/24 03/06/24
06:59 06:59 06:59
Actual Weight 69.57 kg 69.456 kg
Triglycerides 171 mg/dl (10-149) H 03/04/24 08:55
LDL Cholesterol, Calc 184 mg/dl 03/04/24 08:55
VLDL Cholesterol, Calc 34 mg/dl (0-30) H 03/04/24 08:55
HDL Cholesterol 48 mg/dl 03/04/24 08:55
LAB Results
03/02/24 03/02/24 03/03/24
13:52 20:10 02:09
Troponin I < 0.012 < 0.012 0.013
Physical Exam
Constitutional: No acute distress
Cardiovascular: Rhythm & rate is regular
Respiratory: Respiratory effort normal
GI: Soft
Data Reviewed
-
Date of Service: March 05, 2024
Medical Decision Making: Reviewed Test Results
Labs: Labs Reviewed by me
[2024-03-05] MEDS: LOW STRENGTH ASPIRIN 81 MG PO (11:17)
[2024-03-05] MEDS: PROTONIX 40 MG PO (11:17)
[2024-03-05 12:19] LABS: Hematocrit 51.4 % (39.0-52.0); Hemoglobin 18.1 g/dL (13.0-18.0); Mean Corp Hgb Conc. 35.2 g/dL (33.0-37.0); Mean Corpuscular Hgb 29.7 pg (27.0-31.0); Mean Corpuscular Volume 84.3 fL (80.0-94.0); Mean Platelet Volume 9.7 fL (7.4-10.4); Platelet Count 250 10^3/uL (130-400); Red Cell Dist. Width 12.6 % (11.5-14.5); White Blood Cell Count 5.3 10^3/uL (4.8-10.8)
[2024-03-05 12:46] LABS: ALT (SGPT) 78 U/L (0-50); AST (SGOT) 43 U/L (17-59); Albumin 5.1 g/dl (3.5-5.0); Alkaline Phosphatase 87 U/L (38-126); Blood Urea Nitrogen 21 mg/dl (9-20); Calcium 9.8 mg/dl (8.4-10.2); Carbon Dioxide 24 mmol/L (22-30); Chloride 101 mmol/L (98-107); Estimated Creatinine Clearance 91 ml/min; Glucose 108 mg/dl (70-99); Magnesium 2.1 mg/dl (1.6-2.3); Phosphorus 3.6 mg/dl (2.5-4.5); Potassium 4.6 mmol/L (3.5-5.1); Sodium 142 mmol/L (135-145); Total Bilirubin 0.8 mg/dl (0.2-1.3); eGFR > 60.00
[2024-03-05 13:00] VITALS: BP 137/92
[2024-03-05 15:14] VITALS: BP 128/94
--- NOTE | 2024-03-05 16:35 | PTCARENOTE ---
Rec'd at 3pm. Denies pain. Ambulating in room and hallway. Discharge orders placed by Dr Healy.
--- NOTE | 2024-03-05 16:39 | CM ---
MD entered order for discharge.
Spoke with pt in room .
He said he did not need VN at dc.
Cardiology involved.
Offered VN he declined .
He will drive self home.
PLAN Home no needs
[2024-03-05] MEDS: LIPITOR 40 MG PO (16:46)
--- NOTE | 2024-03-05 16:53 | W.DCSUMMARY ---
Discharge Summary
Discharge Data
Date of Admission: 03/02/24
Date of Discharge: 03/05/24
-
Pending Results: No
Hospital Course
Patient is a 54-year-old male with a past medical history of hypertension and hyperlipidemia not treated with medications who presented with chest pain. The patient reported that 3 days prior to his presentation while lifting boxes he developed
chest pressure that lasted for several hours afterwards. The symptoms persisted over the next 3 days. He works in an retail store. He stated that the boxes were about 30 pounds and he was working and moving the boxes for close to an hour when he
noticed that he got short of breath and had to sit down and catch his breath. While he was trying to catch his breath he had chest pressure that has persisted. He stated that although the chest pressure and shortness of breath improved
significantly he had residual chest pressure for about 6 hours. He also just felt exhausted. He had no palpitations or heart racing, no cough, or fever. The next day he decided to stay home from work in order to rest. Since that time he had 2
more episodes with his most recent on the morning prior to his presentation. Reported chest pressure walking upstairs which she reported was accompanied by shortness of breath and lightheadedness. He reported a similar episode a few years ago with
a negative workup at that time. He also noted that his shortness of breath and chest discomfort would occur after eating and says that this did not happen if he drank liquids but if he ate any kind of food that was solid he would develop the
symptoms. The patient was admitted to [facility] for chest pain.
Symptoms resolved without any additional therapy and the patient did not feel any acute chest pain during his hospital stay. Echocardiogram conducted on 03/02/2024 was normal sinus rhythm and a normal ECG. EKG conducted on 03/03/2024 showed sinus
bradycardia but was otherwise a normal ECG. There was suspicion that the patient may have been suffering from stable angina with dyspepsia. Concerns for the dyspepsia came from postprandial chest tightness. An H2 asndrine was started and
cardiology scheduled a stress test. Despite cardiac symptoms for the past couple of days the patient's troponins were negative. D-dimer was negative and troponins remained negative throughout the stay. One evening the patient commented that he
was having chest tightness after eating. The patient was started on a statin due to diagnosed hyperlipidemia with a total cholesterol of 266 and an LDL of 184. The patient also had an elevated ALT and the patient would benefit from follow-up LFTs
with repeated liver imaging. Patient was started on a beta-sandrine but held eventually due to concerns of possible exercise-induced asthma. Beta-sandrine could exacerbate/cause bronchospasm. The patient underwent a sestamibi scan which showed some
inferior wall perfusion defect although it was felt to be due to soft tissue attenuation. Transthoracic echocardiogram did not show any valvular issues with a normal ejection fraction. Cardiology believe that the patient is stable with no acute
issues that need to be addressed during this hospital admission and is appropriate for follow-up in the outpatient setting. The patient believes that he is at or near his baseline and would like to follow with cardiology in the outpatient setting.
Patient will be discharged on aspirin 81 mg, atorvastatin 40 mg, and pantoprazole 40 mg.
The patient has reached maximal benefit from this hospital stay and is appropriate for discharge at the present time. There are no barriers that would impede the patient from being safely discharged at this time. The patient has been recommended
to follow-up with Dr. Villalba his psychiatric social worker and has a follow-up appointment scheduled at the end of March. The patient follow-up with his primary care provider in the outpatient setting 1 to 2 weeks after his discharge from the hospital.
Discharge Plan
-
Patient Disposition: Home (Routine Discharge)
Discharge Diagnosis/Procedures: Hypertension and hypercholesterolemia
Condition: Good
Diet: Low Cholesterol
Activity: No restrictions
Driving Restrictions: As prior to admission
Bathing Restrictions: None
Activity Restrictions/Additional Instructions:
Please follow up with Pulmonology in office as well to get lung function testing.
Referrals:
Ender Royal MD [Active] -
Marsha Randall MD [Family Provider] - in one to two weeks
Kentrell Villalba MD [Active] - 04/12/24 3:40 pm
Prescriptions:
New
atorvastatin 40 mg Tablet
40 mg PO QPM 30 Days Qty: 30 0RF
pantoprazole 40 mg Tablet,Delayed Release (Dr/Ec)
40 mg PO DAILY 30 Days Qty: 30 0RF
aspirin 81 mg Tablet,Chewable
81 mg PO DAILY 30 Days Qty: 30 0RF
Continued
multivitamin 1 EACH tablet
1 ea PO DAILY
ascorbic acid (vitamin C) [Vitamin C] 1,000 MG tablet
1,000 mg PO DAILY
Georgiana Power 1,050 MG capsule
1,050 mg PO DAILY
Discharge Orders:
Discharge Patient (As Directed); Ordered 03/05/24
Ordered By: Ignacio Healy
Discharge Date and Time
Print Language: YAKUT
== END 2024-03-05 17:17 | disposition home or self-care (01) ==
LOC: 4 EAST ACU 18:25
PROVIDERS: Physician Assistant Medical; ADMITTING PHYSICIAN Internal Medicine; ATTENDING PHYSICIAN Hospitalist; CONSULT PHYSICIAN Internal Medicine Cardiovascular Disease; EMERGENCY PHYSICIAN Emergency Medicine; FAMILY PHYSICIAN Internal Medicine Geriatric Medicine
DX: R07.9 Chest pain, unspecified (principal); R11.0 Nausea; R42 Dizziness and giddiness; E78.00 Pure hypercholesterolemia, unspecified; I10 Essential (primary) hypertension; I45.10 Unspecified right bundle-branch block; R74.01 Elevation of levels of liver transaminase levels; R00.1 Bradycardia, unspecified; R06.02 Shortness of breath; Z87.891 Personal history of nicotine dependence; Z82.49 Family history of ischemic heart disease and other diseases of the circulatory system
CPT/HCPCS: 71046; 78452; 80053; 80061; 82150; 82248; 83036; 83690; 83735; 84100; 84484; 85025; 85027; 85379; 93005; 93017; 93306; 99285; A9500; G0378